=== PATIENT | male | born 1955 | race African-American/Black ===

== ENCOUNTER 2022-03-12 10:45 | Day surgery (SDC) | payer OTHER ==
[~2022-03-12] VITALS: Ht 170.2 cm; Wt 75.5 kg
[2022-03-12 11:16] VITALS: BP 112/72; PULSE 66; TEMP 97.6
[2022-03-12] MEDS ORDERED: ABILIFY 10MG TA10 MG PO (11:20)
[2022-03-12] MEDS ORDERED: NAPROSYN500 MG PO (11:21)
[2022-03-12] MEDS ORDERED: VIAGRA100 M1 PO (11:21)
[2022-03-12] MEDS ORDERED: LIPITOR20 MG PO (11:22)
[2022-03-12] MEDS ORDERED: PRINZIDE 12.5 M1 TA1 PO (11:23)
[2022-03-12] MEDS ORDERED: PRILOSEC 20MG20 MG PO (11:23)
[2022-03-12] MEDS ORDERED: UROCIT-K 5540 MG/TAB PO (11:24)
[2022-03-12 14:05] VITALS: BP 95/63; PULSE 70; TEMP 97.6
--- NOTE | 2022-03-12 14:05 | NUR ---
The patient arrived back to [place] [facility] from the operating room at this time. The patient appears very drowsy but arouses easily to his name. Post operative vital signs were started at this time. The patient has skin glue in place to the incision site and it appears without redness or edema. Call light is within reach.
[2022-03-12 14:20] VITALS: BP 97/58; PULSE 66
[2022-03-12] MEDS ORDERED: MOTRIN 600600 MG/TAB PO (14:20)
--- NOTE | 2022-03-12 14:20 | NUR ---
The patient appears to be resting quietly with his eyes closed at this time. Respirations even and unlabored. Vital signs appear stable at this time.
[2022-03-12 14:35] VITALS: BP 103/70; PULSE 71
--- NOTE | 2022-03-12 14:35 | NUR ---
The patient appears more alert and agrees to try some ice chips. Vital signs continue to appear stable. Call light is within reach. The patient denies any further needs.
[2022-03-12 14:53] VITALS: BP 103/70; PULSE 63
--- NOTE | 2022-03-12 14:53 | NUR ---
The patient appears to be tolerating the ice chips well and agrees to try some pepsi and chocolate pudding. Vital signs continue to appear stable. The patient denies any pain or nausea at this time.
--- NOTE | 2022-03-12 15:14 | NUR ---
The patient's IV to his left wrist was removed and a pressure dressing was applied to the site. The patient was assisted to get dressed and appeared to tolerate the the activity well. Discharge instructions were reviewed with the patient by GARRETT Limon. The patient verbalized understaning and questions were answered at this time. The patient's friend, Cj, was called to come pick the patient up.
--- NOTE | 2022-03-12 15:20 | NUR ---
The patient was escorted out via wheelchair to a private vehicle by GARRETT Limon. The patient's belongings and discharge paperwork were sent with him. The patient's friend is present to drive him home.
== END 2022-03-12 15:23 | disposition home or self-care (01) ==
LOC: SDCO 10:45
DX: K40.90 Unilateral inguinal hernia, without obstruction or gangrene, not specified as recurrent (principal); Z87.891 Personal history of nicotine dependence; Z86.16 Personal history of COVID-19; Z79.899 Other long term (current) drug therapy
CPT/HCPCS: C1781; J1100; J1800; J1885; J2250; J2704; J2795; J3010; J7120